=== PATIENT | male | born 1955 | race American Indian/Alaskan Native ===

== ENCOUNTER 2016-07-06 19:42 | Emergency (ER) | payer MEDICARE ==
[2016-07-06] MEDS ORDERED: CATAPRES ONE (20:26)
[2016-07-06] MEDS ORDERED: CATAPRES PO ONE (20:28)
[2016-07-06 20:50] LABS: Basophils % (Auto) 0.6 % (0.0-1.8); Eosinophils % (Auto) 1.2 % (0.0-4.3); Hematocrit 41.2 % (35.5-45.6); Hemoglobin 13.7 gm/dl (11.8-15.2); Mean Corpuscular HGB Conc 33 % (32-34); Mean Corpuscular Hemoglobin 30 pg (28-32); Mean Corpuscular Volume 91 fl (84-94); Platelet Count 283 K/mm3 (140-440); Red Blood Count 4.51 M/mm3 (3.65-5.03); Red Cell Distribution Width 14.2 % (13.2-15.2)
[2016-07-06 20:59] LABS: BUN/Creatinine Ratio 19.16; Blood Urea Nitrogen 23 mg/dL (9-20); Calcium 9.3 mg/dL (8.4-10.2); Carbon Dioxide 22 mmol/L (22-30); Glucose 79 mg/dL (75-100)
[2016-07-06 21:00] LABS: Anion Gap 21 mmol/L; Chloride 99.7 mmol/L (98-107); Potassium 3.8 mmol/L (3.6-5.0); Sodium 139 mmol/L (137-145)
[2016-07-06 22:14] LABS: Urine Drugs of Abuse Note Disclamer
[2016-07-06 22:41] LABS: Bilirubin,Urine NEG (Negative); Blood,Urine MOD (Negative); Ketones,Urine NEG (Negative); Leukocyte Esterase,Urine NEG (Negative); Mucus,Urine FEW /HPF; Nitrite,Urine NEG (Negative); Protein,Urine <15 mg/dL mg/dL (Negative); Urobilinogen,Urine < 2.0 mg/dL (<2.0)
[2016-07-07] MEDS ORDERED: APRESOLINE IV ONE (01:33)
[2016-07-07] MEDS ORDERED: BENTYL IM ONE (01:33)
[2016-07-07] MEDS ORDERED: CARAFATE PO ONE (01:33)
[2016-07-07] MEDS ORDERED: ZOFRAN IV ONE (01:33)
--- NOTE | 2016-07-07 02:03 | Emergency Department Report ---
ED General Adult HPI - General Chief complaint: Medical Clearance Stated complaint: DETOX Time Seen by Provider: 07/07/16 01:22 Source: patient, RN notes reviewed Mode of arrival: Ambulatory Limitations: No Limitations - History of Present Illness Initial comments: This is a 61-year-old male. He is previously known to me. The patient has a past medical history of elevated blood pressure, heroin abuse, polysubstance abuse. He presents to the ER requesting detox. He also feels like he is withdrawing. He denies headache, neck pain, chest pain, homicidality, suicidality. He does not have access to guns or firearms. He denies homicidal or suicidal ideation. The patient versus nausea, cramping, chills, "I am withdrawing." The patient reports that he typically consumes heroin intranasally on a daily basis. His last ingestion was on July 06. He denies other coingestions. -: Gradual Quality: aching Consistency: intermittent Improves with: none Worsens with: none Associated Symptoms: loss of appetite, malaise, nausea/vomiting, weakness. denies: confusion, chest pain, cough - Related Data Home Medications Medication Instructions Recorded Confirmed Last Taken No Known Home Medications [No 07/07/16 07/07/16 Unknown Reported Home Medications] Allergies Allergy/AdvReac Type Severity Reaction Status Date / Time No Known Allergies Allergy Verified 07/06/16 20:10 ED Review of Systems ROS: Stated complaint: DETOX Other details as noted in HPI Constitutional: malaise. denies: fever Eyes: denies: vision change ENT: denies: epistaxis Respiratory: denies: cough Cardiovascular: denies: chest pain, palpitations Gastrointestinal: nausea Genitourinary: as per HPI Musculoskeletal: arthralgia, myalgia Skin: denies: lesions Neurological: weakness Psychiatric: denies: homicidal thoughts, suicidal thoughts ED Past Medical Hx - Past Medical History Previous Medical History?: Yes Hx Hypertension: Yes - Surgical History Past Surgical History?: Yes Additional Surgical History: BACK / KNEE - Social History Smoking Status: Current Every Day Smoker Substance Use Type: Heroin - Medications Home Medications: Home Medications Medication Instructions Recorded Confirmed Last Taken Type No Known Home Medications [No 07/07/16 07/07/16 Unknown History Reported Home Medications] ED Physical Exam - General Limitations: No Limitations General appearance: alert, in no apparent distress - Head Head exam: Present: atraumatic, normocephalic - Eye Eye exam: Present: normal appearance, EOMI. Absent: nystagmus - ENT ENT exam: Present: normal exam, normal orophraynx, mucous membranes moist, normal external ear exam - Neck Neck exam: Present: normal inspection, full ROM. Absent: tenderness, meningismus - Respiratory Respiratory exam: Present: normal lung sounds bilaterally. Absent: respiratory distress, wheezes, rales, rhonchi, stridor, chest wall tenderness, accessory muscle use, decreased breath sounds, prolonged expiratory - Cardiovascular Cardiovascular Exam: Present: regular rate, normal rhythm, normal heart sounds. Absent: bradycardia, tachycardia, irregular rhythm, systolic murmur, diastolic murmur, rubs, gallop - GI/Abdominal GI/Abdominal exam: Present: soft, normal bowel sounds. Absent: distended, tenderness, guarding, rebound, rigid, pulsatile mass - Rectal Rectal exam: Present: deferred - Extremities Exam Extremities exam: Present: normal inspection, full ROM, normal capillary refill. Absent: tenderness, pedal edema, joint swelling, calf tenderness - Back Exam Back exam: Present: normal inspection, full ROM. Absent: tenderness, CVA tenderness (R), CVA tenderness (L), muscle spasm, paraspinal tenderness, vertebral tenderness - Neurological Exam Neurological exam: Present: alert, oriented X3, normal gait, other (Extraocular movements intact. Tongue midline. No facial droop. Facial sensation intact to light touch in the V1, V2, V3 distribution bilaterally. 5 and 5 strength in 4 extremities.. Sensation is intact to light touch in 4 extremities.). Absent : motor sensory deficit - Psychiatric Psychiatric exam: Present: anxious. Absent: homicidal ideation, suicidal ideation - Skin Skin exam: Present: warm, dry, intact, normal color. Absent: rash ED Course Vital Signs 07/06/16 07/06/16 07/06/16 20:10 20:33 23:48 Temperature 98.7 F Pulse Rate 66 61 Respiratory 18 26 H Rate Blood Pressure 193/125 183/122 Blood Pressure [Right] O2 Sat by Pulse 99 96 Oximetry 07/07/16 07/07/16 07/07/16 00:00 00:30 01:00 Temperature Pulse Rate 65 72 52 L Respiratory 15 23 16 Rate Blood Pressure 105/62 201/166 197/110 Blood Pressure [Right] O2 Sat by Pulse 95 100 98 Oximetry 07/07/16 07/07/16 07/07/16 01:30 01:46 02:00 Temperature Pulse Rate 67 76 Respiratory 22 17 14 Rate Blood Pressure 197/134 238/151 191/124 Blood Pressure [Right] O2 Sat by Pulse 96 98 Oximetry 07/07/16 07/07/16 07/07/16 02:03 02:16 02:30 Temperature Pulse Rate 72 76 74 Respiratory 22 18 Rate Blood Pressure 220/110 196/121 191/113 Blood Pressure [Right] O2 Sat by Pulse 97 97 Oximetry 07/07/16 07/07/16 07/07/16 02:45 03:00 03:16 Temperature Pulse Rate 69 71 73 Respiratory 19 17 29 H Rate Blood Pressure 177/104 185/101 196/110 Blood Pressure [Right] O2 Sat by Pulse 97 96 95 Oximetry 07/07/16 07/07/16 07/07/16 03:30 03:46 04:00 Temperature Pulse Rate 71 59 L 68 Respiratory 21 22 18 Rate Blood Pressure 209/126 175/95 201/135 Blood Pressure [Right] O2 Sat by Pulse 92 94 97 Oximetry 07/07/16 07/07/16 07/07/16 04:16 04:30 04:46 Temperature Pulse Rate 91 H Respiratory 25 H Rate Blood Pressure 220/107 220/107 146/79 Blood Pressure [Right] O2 Sat by Pulse 98 98 95 Oximetry 07/07/16 07/07/16 07/07/16 05:00 06:00 06:30 Temperature Pulse Rate Respiratory Rate Blood Pressure 146/79 146/79 146/79 Blood Pressure [Right] O2 Sat by Pulse 98 98 98 Oximetry 07/07/16 07/07/16 07/07/16 07:40 08:08 09:00 Temperature 98.7 F Pulse Rate 61 78 66 Respiratory 16 16 16 Rate Blood Pressure 159/120 Blood Pressure 179/125 175/115 [Right] O2 Sat by Pulse 97 96 97 Oximetry 07/07/16 07/07/16 07/07/16 10:03 11:16 13:40 Temperature 98.4 F 98.2 F Pulse Rate 65 74 72 Respiratory 16 16 16 Rate Blood Pressure 190/118 Blood Pressure 175/109 174/100 [Right] O2 Sat by Pulse 98 99 100 Oximetry 07/07/16 16:07 Temperature Pulse Rate 76 Respiratory 16 Rate Blood Pressure Blood Pressure 180/99 [Right] O2 Sat by Pulse 99 Oximetry - Reevaluation(s) Reevaluation #1: 07/07/16 02:02 Differential diagnosis: Narcotic dependence, narcotic abuse, narcotic withdrawal , incidental elevated blood pressure, medical clearance for detox. Assessment and plan: 61-year-old male who reports daily narcotic use, who is currently alert and oriented 3, has a GCS of 15, NIH score of 0, clinically sober at this time, does not require 1013. Laboratory studies are unremarkable. He is somewhat hypertensive. He will be given clonidine for withdrawal symptoms, and additional symptomatically medication. The patient will also be treated for abdominal cramping, nausea and vomiting. A serum toxicology screen is pending at this time. Reevaluation #2: 07/07/16 04:12 blood pressure improved. Serum toxicology studies are unremarkable. Patient resting comfortably. At this point in time, I see no immediate medical contraindication to detox therapy/psychiatric consultation. The crisis team was informed. Reevaluation #3: 07/07/16 05:32 hypertension/elevated blood pressure is appreciated. This is asymptomatic. The patient is not demonstrating any clinical indication of end organ dysfunction. As per the [employer] clinical policy on a symptomatically hypertension: Are ED blood pressure readings accurate and reliable for screening asymptomatic patients for hypertension? Level A recommendations. None specified. Level B recommendations. If blood pressure measurements are persistently elevated with a systolic blood pressure greater than 140 mm Hg or diastolic blood pressure greater than 90 mm Hg, the patient should be referred for follow- up of possible hypertension and blood pressure management. Level C recommendations. Patients with a single elevated blood pressure reading may require further screening for hypertension in the outpatient setting. 2. Do asymptomatic patients with elevated blood pressures benefit from rapid lowering of their blood pressure? Level A recommendations. None specified. Level B recommendations. (1) Initiating treatment for asymptomatic hypertension in the ED is not necessary when patients have follow-up; (2) Rapidly lowering blood pressure in asymptomatic patients in the ED is unnecessary and may be harmful in some patients; (3) When ED treatment for asymptomatic hypertension is initiated, blood pressure management should attempt to gradually lower blood pressure and should not be expected to be normalized during the initial ED visit. The patient can follow up with outpatient primary care doctor for this, but we will initiate low-dose Norvasc at this time. 07/07/16 05:34 ED Medical Decision Making - Lab Data Result diagrams: 07/06/16 20:18 07/06/16 20:18 Vital Signs 07/06/16 07/06/16 07/06/16 20:10 20:33 23:48 Temperature 98.7 F Pulse Rate 66 61 Respiratory 18 26 H Rate Blood Pressure 193/125 183/122 O2 Sat by Pulse 99 96 Oximetry 07/07/16 07/07/16 07/07/16 00:00 00:30 01:00 Temperature Pulse Rate 65 72 52 L Respiratory 15 23 16 Rate Blood Pressure 105/62 201/166 197/110 O2 Sat by Pulse 95 100 98 Oximetry 07/07/16 01:30 Temperature Pulse Rate 67 Respiratory 22 Rate Blood Pressure 197/134 O2 Sat by Pulse Oximetry Lab Results 07/06/16 07/06/16 07/06/16 Range/Units 20:18 20:18 20:18 WBC 11.0 (4.5-11.0) K/mm3 RBC 4.51 (3.65-5.03) M/mm3 Hgb 13.7 (11.8-15.2) gm/dl Hct 41.2 (35.5-45.6) % MCV 91 (84-94) fl MCH 30 (28-32) pg MCHC 33 (32-34) % RDW 14.2 (13.2-15.2) % Plt Count 283 (140-440) K/mm3 Lymph % (Auto) 29.3 (13.4-35.0) % [place] % (Auto) 6.6 (0.0-7.3) % Eos % (Auto) 1.2 (0.0-4.3) % Baso % (Auto) 0.6 (0.0-1.8) % Lymph # 3.2 (1.2-5.4) K/mm3 [place] # 0.7 (0.0-0.8) K/mm3 Eos # 0.1 (0.0-0.4) K/mm3 Baso # 0.1 (0.0-0.1) K/mm3 Seg Neutrophils % 62.3 (40.0-70.0) % Seg Neutrophils # 6.9 (1.8-7.7) K/mm3 Sodium 139 (137-145) mmol/L Potassium 3.8 (3.6-5.0) mmol/L Chloride 99.7 (98-107) mmol/L Carbon Dioxide 22 (22-30) mmol/L Anion Gap 21 mmol/L BUN 23 H (9-20) mg/dL Creatinine 1.2 (0.8-1.5) mg/dL Estimated GFR > 60 ml/min BUN/Creatinine Ratio 19.16 % Glucose 79 (75-100) mg/dL Calcium 9.3 (8.4-10.2) mg/dL Urine Color (Yellow) Urine Turbidity (Clear) Urine pH (5.0-7.0) Ur Specific [place] (1.003-1.030) Urine Protein (Negative) mg/dL Urine Glucose (UA) (Negative) mg/dL Urine Ketones (Negative) mg/dL Urine Blood (Negative) Urine Nitrite (Negative) Urine Bilirubin (Negative) Urine Urobilinogen (<2.0) mg/dL Ur Leukocyte Esterase (Negative) Urine WBC (Auto) (0.0-6.0) /HPF Urine RBC (Auto) (0.0-6.0) /HPF Urine Mucus /HPF Urine Opiates Screen Urine Methadone Screen Ur Barbiturates Screen Ur Phencyclidine Scrn Ur Amphetamines Screen U Benzodiazepines Scrn Urine Cocaine Screen U Marijuana (THC) Screen Drugs of Abuse Note Plasma/Serum Alcohol < 0.01 (0-0.07) gm% 07/06/16 07/06/16 Range/Units Unknown Unknown WBC (4.5-11.0) K/mm3 RBC (3.65-5.03) M/mm3 Hgb (11.8-15.2) gm/dl Hct (35.5-45.6) % MCV (84-94) fl MCH (28-32) pg MCHC (32-34) % RDW (13.2-15.2) % Plt Count (140-440) K/mm3 Lymph % (Auto) (13.4-35.0) % [place] % (Auto) (0.0-7.3) % Eos % (Auto) (0.0-4.3) % Baso % (Auto) (0.0-1.8) % Lymph # (1.2-5.4) K/mm3 [place] # (0.0-0.8) K/mm3 Eos # (0.0-0.4) K/mm3 Baso # (0.0-0.1) K/mm3 Seg Neutrophils % (40.0-70.0) % Seg Neutrophils # (1.8-7.7) K/mm3 Sodium (137-145) mmol/L Potassium (3.6-5.0) mmol/L Chloride (98-107) mmol/L Carbon Dioxide (22-30) mmol/L Anion Gap mmol/L BUN (9-20) mg/dL Creatinine (0.8-1.5) mg/dL Estimated GFR ml/min BUN/Creatinine Ratio % Glucose (75-100) mg/dL Calcium (8.4-10.2) mg/dL Urine Color Yellow (Yellow) Urine Turbidity Clear (Clear) Urine pH 5.0 (5.0-7.0) Ur Specific [place] 1.024 (1.003-1.030) Urine Protein <15 mg/dl (Negative) mg/dL Urine Glucose (UA) Neg (Negative) mg/dL Urine Ketones Neg (Negative) mg/dL Urine Blood Mod (Negative) Urine Nitrite Neg (Negative) Urine Bilirubin Neg (Negative) Urine Urobilinogen < 2.0 (<2.0) mg/dL Ur Leukocyte Esterase Neg (Negative) Urine WBC (Auto) 1.0 (0.0-6.0) /HPF Urine RBC (Auto) 39.0 (0.0-6.0) /HPF Urine Mucus Few /HPF Urine Opiates Screen Presumptive positive Urine Methadone Screen Presumptive positive Ur Barbiturates Screen Presumptive negative Ur Phencyclidine Scrn Presumptive negative Ur Amphetamines Screen Presumptive negative U Benzodiazepines Scrn Presumptive negative Urine Cocaine Screen Presumptive positive U Marijuana (THC) Screen Presumptive negative Drugs of Abuse Note Disclamer Plasma/Serum Alcohol (0-0.07) gm% Critical care attestation.: If time is entered above; I have spent that time in minutes in the direct care of this critically ill patient, excluding procedure time. ED Disposition Clinical Impression: Narcotic dependence, Elevated blood pressure reading Disposition: DC/TX PSY HOSP/PSY UNIT Is pt being admited?: No Does the pt Need Aspirin: No Condition: Stable Referrals: [facility] [Other] - 3-5 Days
[2016-07-07] MEDS ORDERED: CATAPRES PO PRN (05:32)
[2016-07-07] MEDS ORDERED: ZOFRAN ODT PO PRN (05:32)
[2016-07-07] MEDS ORDERED: NORVASC PO SCH (10:00)
--- NOTE | 2016-07-07 12:26 | Consultation ---
History of Present Illness - Reason for Consult Consult date: 07/07/16 Reason for consult: psychiatric evaluation - Chief Complaint Chief complaint: "I was feeling sick" 61 year old black male seen in the ED for psychiatric evaluation. He was in the process of being admitted to [facility] last night and decided to go to the ER for possible opiate withdrawal. He reports his last use was 07/03/16. He reports using $100 worth of heroin daily, snorting. He initially denied depression but described symptoms of anhedonia, lack of motivation, low self esteem, irritability, and isolation. These symptoms have been ongoing. Denies history of manic episodes or psychotic symptoms. None elicited. He denies use of alcohol or benzodiazepines. He denies other substance use. He had a period of sobriety from [id number] after he went to [facility] inpatient. He does not have social support locally. Medications and Allergies Allergies Allergy/AdvReac Type Severity Reaction Status Date / Time No Known Allergies Allergy Verified 07/06/16 20:10 Home Medications Medication Instructions Recorded Confirmed Last Taken Type No Known Home Medications [No 07/07/16 07/07/16 Unknown History Reported Home Medications] Active Meds: Active Medications Amlodipine Besylate (Norvasc) 5 mg PO QDAY JARON Last Admin: 07/07/16 10:03 Dose: 5 mg Clonidine HCl (Catapres) 0.1 mg PO BID PRN PRN Reason: Hypertension Last Admin: 07/07/16 08:08 Dose: 0.1 mg Ondansetron HCl (Zofran Odt) 4 mg PO QID PRN PRN Reason: Nausea Past psychiatric history - Past Medical History Past Medical History: hypertension Past Surgical History: No surgical history - past Psychiatric treatment and history Psych: Addictions psychiatric treatment history: no history of SA - Social History Social history: Lives alone Mental Status Exam - Vital signs Last Vital Signs Temp 98.4 F 07/07/16 10:03 Pulse 74 07/07/16 11:16 Resp 16 07/07/16 11:16 BP 175/109 07/07/16 11:16 Pulse Ox 99 07/07/16 11:16 - Exam Orientation: time, place, person Affect: depressed Mood: congruent with affect Thought content: other (no SI, no HI) Thought Process: Intact Perceptions: none Speech: normal rate and pattern Concentration: focused Motor activity: normal Level of consciousness: alert Memory: Intact Sleep Symptoms: Difficulty Falling Asleep Appetite: decreased Interaction: cooperative Results Result Diagrams: 07/06/16 20:18 07/06/16 20:18 Abnormal lab results 07/06/16 07/07/16 Range/Units 20:18 01:33 BUN 23 H (9-20) mg/dL Salicylates < 0.3 L (2.8-20.0) mg/dL All other labs normal. Assessment and Plan Assessment and plan: Impression: No acute safety concerns Dx: Opioid use disorder (withdrawal symptoms are minimal if any)-clonidine would address mild opiate withdrawal symptoms. Although he is not complaining of body aches, nausea/vomiting/diarrhea, or flu like symptoms. He complains of cravings. Major depressive disorder-discussed starting antidepressant (Wellbutrin) if hospital stay is extended or if he follow up at [facility], medications will be addressed there. His main objective for the day is to obtain medication to relieve symptoms he thought was withdrawal from opiates. He was given clonidine for hypertension. It is not recommended to give any opiate based medication. [facility]. The staff at the [facility] will proceed with the admission when he returns after medical clearance.
--- NOTE | 2016-07-07 15:35 | Emergency Department Report ---
Blank Doc - Documentation Documentation: Patient has been evaluated by mental health and has been cleared for discharge to go to the partial hospitalization program at [facility]. Patient will be discharged at this time.
[2016-07-07 16:07] VITALS: BP 180/99
== END 2016-07-07 16:07 ==
LOC: ED 19:42
DX: F11.23 Opioid dependence with withdrawal (principal); I10 Essential (primary) hypertension; R53.81 Other malaise; F17.200 Nicotine dependence, unspecified, uncomplicated
CPT/HCPCS: 36415; 80048; 80307; 81001; 85025; 96374; 96375; 99284; G0480; J0360; J0500; J2405; 80320